=== PATIENT | male | born 1975 | race Hispanic/Latino ===

== ENCOUNTER 2017-04-15 20:56 | Observation (INO) | payer BC ==
[~2017-04-15] VITALS: Ht 172.7 cm; Wt 121.0 kg
[~2017-04-15 20:56] MED LIST: AMLO5TAB2 PO; ASPI-555 PO; CLON0.3T PO; CLOP75TA32 PO; GLIP10TA9 PO; HYDR25TA PO; INSLAN SQ; INSREG SQ; ISOS60TA4 PO; LISI-613 PO; METO100T14 PO; NITR0.4T SL; ROSU20TA PO; TRAZ-144 PO
[2017-04-15 21:25] LABS: BASOPHILS % (AUTO) 0.9 % (0.0-5.0); EOSINOPHILS % (AUTO) 3.3 % (0.0-8.0); HEMATOCRIT 40.1 % (42-54); LYMPHOCYTES % (AUTO) 40.4 % (21.0-51.0); MEAN CORPUSCULAR HEMOGLOBIN 29.3 pg (27.0-33.0); MEAN CORPUSCULAR VOLUME 83.6 fL (79-99); MONOCYTES % (AUTO) 7.3 % (3.0-13.0); NEUTROPHILS % (AUTO) 48.1 % (40.0-77.0); PLATELET COUNT (AUTO) 232 K/uL (130-400); RED BLOOD CELL COUNT(AUTO) 4.79 MIL/uL (4.50-6.20); RED CELL DISTRIBUTION WIDTH 12.6 % (11.0-15.5); WHITE BLOOD COUNT (AUTO) 6.7 K/uL (4.8-10.8)
[2017-04-15 21:39] LABS: INR 0.95 (0.85-1.15); PARTIAL THROMBOPLASTIN TIME 24.1 SEC (26.3-35.5)
[2017-04-15] MEDS ORDERED: NITROGLYCERIN 1GM/1 INCH PACKET TD ONE (21:48)
[2017-04-15 22:06] LABS: ALBUMIN 3.3 g/dL (3.5-5.0); BILIRUBIN,TOTAL 0.2 mg/dL (0.2-1.0); CREATININE 1.4 mg/dL (0.5-1.5); POTASSIUM 3.7 mmol/L (3.5-5.1); TOTAL PROTEIN, SERUM 7.1 g/dL (6.0-8.3)
[2017-04-15] MEDS ORDERED: HYDRALAZINE HCL 20 MG/ML VIAL IV PRN (23:00)
[2017-04-15] MEDS ORDERED: ACETAMINOPHEN 325 MG TAB PO PRN ×2 (23:00)
[2017-04-15] MEDS ORDERED: NITROGLYCERIN 0.4 MG SL TAB SL PRN (23:00)
[2017-04-15] MEDS ORDERED: LIDOCAINE HCL-MPF 1% 2ML VIAL IVP PRN (23:00)
[2017-04-15] MEDS ORDERED: ONDANSETRON HCL 4 MG/2 ML VIAL IV PRN (23:00)
[2017-04-15] MEDS ORDERED: POTASSIUM CHLORIDE 20MEQ/100ML 100 ML IV PRN (23:00)
[2017-04-15] MEDS ORDERED: ZOLPIDEM TARTRATE 5 MG TAB PO PRN (23:00)
[2017-04-15] MEDS ORDERED: POTASSIUM CHLORIDE 10% ELIXIR 20 MEQ/15 ML UDCUP PO PRN (23:00)
[2017-04-15] MEDS ORDERED: ACETAMINOPHEN 325 MG TAB ONE (23:41)
[2017-04-16] MEDS ORDERED: INSULIN HUMULIN R 100 UNIT/ML 3ML ONE ×2 (00:38→12:20)
[2017-04-16] MEDS ORDERED: NITROGLYCERIN 1GM/1 INCH PACKET TD ONE ×2 (05:28→14:09)
[2017-04-16 06:04] LABS: HEMOGLOBIN A1C 11.5 % (4.0-6.0)
[2017-04-16 06:30] LABS: CREATINE KINASE MB 0.7 ng/mL (0.5-3.6); CREATINE KINASE, TOTAL 91 U/L (21-232); MYOGLOBIN 38 ng/mL (10-92); THYROID STIMULATING HORMONE 4.77 uIU/mL (0.36-3.74); TROPONIN I < 0.04 ng/mL (0.00-0.06)
[2017-04-16] MEDS ORDERED: CLOPIDOGREL BISULFATE 75 MG TAB ONE (08:55)
[2017-04-16] MEDS ORDERED: ASPIRIN 325 MG TABLET ONE (08:55)
[2017-04-16] MEDS ORDERED: METOPROLOL TARTRATE 25 MG TAB ONE (08:56)
[2017-04-16] MEDS ORDERED: FAMOTIDINE 20MG TAB 20 MG TAB ONE (08:56)
[2017-04-16] MEDS: FAMOTIDINE 20MG TAB 20 MG TAB PO SCH ×2 (09:00→20:11)
[2017-04-16] MEDS: METOPROLOL TARTRATE 25 MG TAB PO SCH ×2 (09:00→23:15)
[2017-04-16] MEDS ORDERED: CLOPIDOGREL BISULFATE 75 MG TAB PO SCH (09:00)
[2017-04-16] MEDS: ASPIRIN 325 MG TABLET PO SCH (09:00)
[2017-04-16 10:49] LABS: CREATINE KINASE MB 0.7 ng/mL (0.5-3.6); CREATINE KINASE, TOTAL 83 U/L (21-232); MYOGLOBIN 40 ng/mL (10-92); TROPONIN I < 0.04 ng/mL (0.00-0.06)
[2017-04-16] MEDS: NITROGLYCERIN 1GM/1 INCH PACKET TD SCH ×2 (15:00→23:00)
[2017-04-16] MEDS: INSULIN HUMULIN R 100 UNIT/ML 3ML SQ SCH ×2 (16:03→22:26)
[2017-04-16 16:35] VITALS: BP 148/96
[2017-04-16] MEDS ORDERED: NITROGLYCERIN 0.4 MG SL TAB SL PRN (18:30)
[2017-04-16] MEDS ORDERED: ACETAMINOPHEN-CODEINE 300/30MG TAB PO PRN (18:30)
[2017-04-16] MEDS ORDERED: OMEP20TA25 PO (18:39)
[2017-04-16] MEDS ORDERED: LISI1TAB11 PO (18:39)
[2017-04-16] MEDS ORDERED: TYL3 PO (18:39)
[2017-04-16] MEDS ORDERED: INSLAN SQ (18:54)
[2017-04-16] MEDS ORDERED: INSREG SQ (18:54)
[2017-04-16] MEDS ORDERED: INSULIN HUMULIN R 100 UNIT/ML 3ML SQ SCH (19:00)
[2017-04-16 20:00] VITALS: BP 157/102
[2017-04-16] MEDS: AMLODIPINE BESYLATE 5 MG TAB PO SCH (20:08)
[2017-04-16] MEDS: GLIPIZIDE 5 MG TABLET PO SCH (20:09)
[2017-04-16] MEDS: LISINOPRIL 20 MG TABLET PO SCH (20:10)
[2017-04-16] MEDS: HYDROCHLOROTHIAZIDE 25 MG TABLET PO SCH (20:10)
[2017-04-16] MEDS ORDERED: ATORVASTATIN CALCIUM 20 MG TABLET PO SCH (21:00)
[2017-04-16] MEDS ORDERED: TRAZODONE HCL 50 MG TAB PO SCH (21:00)
[2017-04-16] MEDS ORDERED: ATORVASTATIN CALCIUM 40 MG TABLET PO SCH (21:00)
[2017-04-16] MEDS: INSULIN GLARGINE 100 UNITS/ML 10 ML VIAL SQ SCH (22:29)
[2017-04-16] MEDS: CLONIDINE HCL 0.3 MG TABLET PO SCH (22:31)
[2017-04-17] VITALS: BP 178/106
[2017-04-17] MEDS: METOPROLOL TARTRATE 50 MG TAB PO SCH ×2 (00:14→09:32)
[2017-04-17 04:00] VITALS: BP 107/75
[2017-04-17 04:13] LABS: CREATININE 1.4 mg/dL (0.5-1.5)
[2017-04-17] MEDS: NITROGLYCERIN 1GM/1 INCH PACKET TD SCH ×2 (06:27→15:00)
[2017-04-17] MEDS: INSULIN HUMULIN R 100 UNIT/ML 3ML SQ SCH ×2 (06:31→12:17)
[2017-04-17 07:00] VITALS: BP 116/76
[2017-04-17] MEDS ORDERED: CLOPIDOGREL BISULFATE 75 MG TAB PO SCH (09:00)
[2017-04-17] MEDS ORDERED: ISOSORBIDE MONO 60 MG TAB.SR PO SCH (09:00)
[2017-04-17] MEDS ORDERED: PANTOPRAZOLE SODIUM 40 MG TABLET.DR PO SCH (09:00)
[2017-04-17] MEDS: METOPROLOL TARTRATE 25 MG TAB PO SCH (09:00)
[2017-04-17] MEDS: GLIPIZIDE 5 MG TABLET PO SCH (09:30)
[2017-04-17] MEDS: LISINOPRIL 20 MG TABLET PO SCH (09:31)
[2017-04-17] MEDS: CLONIDINE HCL 0.3 MG TABLET PO SCH (09:31)
[2017-04-17] MEDS: HYDROCHLOROTHIAZIDE 25 MG TABLET PO SCH (09:32)
[2017-04-17] MEDS: ASPIRIN 325 MG TABLET PO SCH (09:33)
[2017-04-17] MEDS: AMLODIPINE BESYLATE 5 MG TAB PO SCH (09:33)
[2017-04-17] MEDS: POTASSIUM CHLORIDE 20 MEQ ERTAB PO PRN ×4 (09:34→12:55)
[2017-04-17] MEDS: INSULIN GLARGINE 100 UNITS/ML 10 ML VIAL SQ SCH (09:36)
[2017-04-17] MEDS: FAMOTIDINE 20MG TAB 20 MG TAB PO SCH (09:37)
[2017-04-17 11:00] VITALS: BP 110/70
[2017-04-17 13:53] LABS: CREATININE 1.4 mg/dL (0.5-1.5); POTASSIUM 4.1 mmol/L (3.5-5.1)
== END 2017-04-17 15:45 | disposition home or self-care (01) ==
LOC: EDH 20:56 → EDHIP 22:26 → 3CH 04-16 14:48 → EDHIP 04-16 15:07 → 3BH 04-16 16:32
PROVIDERS: ADMIT Internal Medicine; ATTEND Internal Medicine
DX: I25.119 Atherosclerotic heart disease of native coronary artery with unspecified angina pectoris (principal); E11.65 Type 2 diabetes mellitus with hyperglycemia; I25.2 Old myocardial infarction; I10 Essential (primary) hypertension; E78.5 Hyperlipidemia, unspecified; G47.33 Obstructive sleep apnea (adult) (pediatric); E66.9 Obesity, unspecified; Z82.49 Family history of ischemic heart disease and other diseases of the circulatory system; Z95.5 Presence of coronary angioplasty implant and graft; Z95.1 Presence of aortocoronary bypass graft
CPT/HCPCS: 36415 ×3; 71045; 80048 ×2; 80053; 82550 ×3; 82553 ×3; 82948 ×5; 83036; 83874 ×3; 84443; 84484 ×3; 85025; 85610; 85730; 93005; 96361; 96372 ×2; 96374; 99291; A4510; G0378 ×41; J1815 ×6; J3480; J3490; J0360

== ENCOUNTER → 2023-05-07 | Outpatient (CLI) | payer OTHER ==
[~2023-05-07] MED LIST changes: +AMLO-257 PO; -AMLO5TAB2 PO; -ASPI-555 PO; -HYDR25TA PO; -ISOS60TA4 PO; +ISOS60TA77 PO; -LISI-613 PO; +LISI1TAB51 PO; +OMEP20TA20 PO; -ROSU20TA PO; +ROSU20TA23 PO; -TRAZ-144 PO; +TRAZ-185 PO; +TYL3 PO
== END | disposition home or self-care (01) ==
LOC: RAH 14:24
PROVIDERS: ATTEND Internal Medicine Gastroenterology
DX: M47.815 Spondylosis without myelopathy or radiculopathy, thoracolumbar region (principal); R68.81 Early satiety; Z90.49 Acquired absence of other specified parts of digestive tract
CPT/HCPCS: 74018